=== PATIENT | female | born 1990 | race Caucasian/White ===

== ENCOUNTER 2016-07-15 15:46 | Emergency (ER) | payer OTHER ==
[~2016-07-15] VITALS: Ht 170.2 cm; Wt 57.6 kg
[2016-07-15 15:48] VITALS: BP 123/73
--- NOTE | 2016-07-15 16:50 | NUR ---
PT CAME TO ER W/ C/O FRONTAL LOBE HEADACHE X 8 DAYS BILATERAL EARS CONGESTION, BODYACHES, FATIGUED.STARTED DIARRHEA X 2 TODAY WITH N/V. PT STATES THAT SHE SELF MEDICTED W/ AMOXICILLIN.PT STATES THAT SHE FEELS DIZZY AND HAVING SLIGHT SOB.DENIES ANY MEDICAL HX;NO ACUTE DISTRESS NOTED AT THIS TIME;NEEDS ATTENDED;SAFETY PRECAUTION INSTITUTED; MADE AWARE OF PT'S CONDITION.
--- NOTE | 2016-07-15 16:56 | NUR ---
DR GARFF AT BEDSIDE
[2016-07-15] MEDS ORDERED: ACETAMINOPHEN EXTRA STRENGTH 500 MG TAB PO ONE (17:05)
[2016-07-15] MEDS ORDERED: IBUPROFEN 600 MG TAB PO ONE (17:05)
[2016-07-15] MEDS ORDERED: ONDANSETRON 4 MG ODT PO ONE (17:05)
[2016-07-15 17:31] LABS: ANION GAP 8.6 (8-16); CALCIUM 8.1 mg/dL (8.5-10.1); CARBON DIOXIDE 30.3 mmol/L (21-32); CREATININE 0.8 mg/dL (0.6-1.3); POTASSIUM 3.9 mmol/L (3.5-5.1)
[2016-07-15 17:41] LABS: INFLUENZA A & B ANTIGENS NEGATIVE FOR A & B (NEGATIVE); MONOTEST NEGATIVE (NEGATIVE)
--- NOTE | 2016-07-15 17:51 | NUR ---
pt lying on bed;no acute distress noted at this time;will continue to monitor pt.
--- NOTE | 2016-07-15 17:54 | NUR ---
pt verbalizes "i'm feeling much better now".will continue to monitor pt.
--- NOTE | 2016-07-15 18:24 | NUR ---
DR GRAFF AT BEDSIDE
--- NOTE | 2016-07-15 18:43 | NUR ---
Patient discharged with v/s stable. Written and verbal after care instructions given and explained. Patient alert, oriented and verbalized understanding of instructions. Ambulatory with steady gait. All questions addressed prior to discharge. ID band removed. Patient advised to follow up with PMD. Rx of ZOFRAN given. Patient educated on indication of medication including possible reaction and side effects. Opportunity to ask questions provided and answered.ADVISED PT TO INCREASE FLUID INTAKE AND AVOID GREASY FOODS AT THE MOMENT UNTIL STOOL IS BACK NORMAL CONSISTENCY.
[2016-07-15 18:45] VITALS: BP 105/64
== END 2016-07-15 18:43 | disposition home or self-care (01) ==
LOC: MED 15:46
DX: J02.9 Acute pharyngitis, unspecified (principal); R09.81 Nasal congestion; R52 Pain, unspecified; R10.9 Unspecified abdominal pain; R53.1 Weakness; R06.02 Shortness of breath
CPT/HCPCS: 36415; 80048; 81002; 81025; 87804; 99284; S0119